=== PATIENT | female | born 1990 ===

== ENCOUNTER 2019-02-06 23:13 | Inpatient (IN) | payer OTHER ==
[2019-02-07] MEDS ORDERED: MINERAL OIL PO PRN (00:04)
[2019-02-07] MEDS ORDERED: SUBLIMAZE IV PRN (00:04)
[2019-02-07] MEDS ORDERED: BRETHINE IVP PRN (00:04)
[2019-02-07] MEDS ORDERED: XYLOCAINE 2% INFILTRATI ONE (00:04)
[2019-02-07] MEDS ORDERED: BRETHINE SUB-Q PRN (00:04)
[2019-02-07 00:52] LABS: Hematocrit 35.3 % (30.3-42.9); Hemoglobin 12.4 gm/dl (10.1-14.3); Mean Corpuscular HGB Conc 35 % (30-34); Mean Corpuscular Volume 88 fl (79-97); Platelet Count 265 K/mm3 (140-440); Red Blood Count 4.01 M/mm3 (3.65-5.03); Red Cell Distribution Width 13.2 % (13.2-15.2)
[2019-02-07] MEDS ORDERED: PITOCin/NS 30 UNIT/500ML 30 UNITS/500 ML BAG IV SCH (01:00)
[2019-02-07] MEDS ORDERED: LACTATED RINGERS 1,000 ML IV SCH (01:00)
--- NOTE | 2019-02-07 03:59 | History and Physical Report ---
History of Present Illness Date of examination: 02/07/19 Date of admission: 02/07/19 02:31 Chief complaint: Intense labor pains History of present illness: 28 yo Fe WING 02/15/2019, 38w 6d presents in active labor. Pt initiated early care with Dr. Lovell at [facility] . Records available and reviewed. course complicated by Chlamydia on 08/05/18. YOLIE done 01/27/2019 (results not documented; pt reports Negative). 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 denies: abnormal PAP smear, gonorrhea, hepatitis B, hepatitis C, herpes, HIV, syphilis, trichomonas Family/Genetic History: none Social history: no significant social history, single, lives with family, full code. denies: smoking, alcohol abuse, prescription drug abuse, IV drug use - Obstetrical History Expected Date of Delivery: 02/15/19 Actual Gestation: 38 Week(s) 6 Day(s) : 2 Para: 1 Hx # Term Pregnancies: 1 Number of Pregnancies: 0 Spontaneous Abortions: 0 Induced : 0 Number of Living Children: 1 #1 year: 2,014 Birthweight: 3.175 kg Method of Delivery: Vaginal Gestational age at delivery: 39 Complications: none Medications and Allergies Allergies Allergy/AdvReac Type Severity Reaction Status Date / Time No Known Allergies Allergy Verified 02/07/19 00:12 Active Meds: Active Medications Ephedrine Sulfate (Ephedrine Sulfate) 10 mg IV Q2M PRN PRN Reason: Hypotension Fentanyl (Sublimaze) 100 mcg IV Q2H PRN PRN Reason: Labor Pain Last Admin: 02/07/19 01:03 Dose: 100 mcg Documented by: Oxytocin/Sodium Chloride (Pitocin/Ns 20 Unit/1000ml Drip) 20 units in 1,000 mls @ 125 mls/hr IV DIRECT BLANCHE Oxytocin/Sodium Chloride (Pitocin/Ns 30 Unit/500ml) 30 units in 500 mls @ 1 mls/hr IV TITR BLANCHE; Protocol Lactated Ringer's (Lactated Ringers) 1,000 mls @ 125 mls/hr IV DIRECT BLANCHE Last Admin: 02/07/19 01:10 Dose: 125 mls/hr Documented by: Mineral Oil (Mineral Oil) 30 ml PO QHS PRN PRN Reason: Constipation Terbutaline Sulfate (Brethine) 0.25 mg SUB-Q ONCE PRN PRN Reason: Hyperstimulation/Hypertonicity Terbutaline Sulfate (Brethine) 0.25 mg IVP ONCE PRN PRN Reason: Hyperstimulation/Hypertonicity Review of Systems Eyes: normal appearance Cardiovascular: no chest pain, no shortness of breath Respiratory: no shortness of breath Breasts: normal Gastrointestinal: no nausea, no vomiting, no diarrhea Genitourinary: normal appearance, vaginal bleeding (normal show), leakage of fluid, contractions, no genital sores Integumentary: no rash, no sores, no lesions - Vital Signs Vital signs: Vital Signs Pulse BP Pulse Ox 107 H 118/75 96 02/06/19 23:26 02/06/19 23:26 02/06/19 23:26 Temp Pulse Resp BP Pulse Ox 89 18 110/71 97 02/07/19 03:37 02/06/19 23:28 02/07/19 02:21 02/07/19 03:37 - Physical Exam Breasts: Positive: normal Cardiovascular: Regular rate, Normal S1, Normal S2, No murmurs Lungs: Positive: Clear to auscultation, Normal air movement Abdomen: Positive: normal appearance, soft, normal bowel sounds. Negative: distention Genitourinary (Female): Positive: normal external genitalia, normal perenium Vulva: both: normal (normal bloody show) Vagina: Positive: normal moisture, discharge (bloody show) Uterus: Positive: enlarged (gravid) Anus/Rectum: Positive: normal perianal skin Extremities: Positive: normal Deep Tendon Reflex Grade: Normal +2 - Obstetrical FHR: category 1 Uterine Contraction Monitor Mode: External Cervical Dilatation: 8 (4 on admission per RN) Cervical Effacement Percentage: 75 station: -1 Uterine Contraction Frequency (min): 1-3 Uterine Contraction Duration: 90-120 Uterine Contraction Pattern: Regular Uterine Tone Measurement Phase: Resting Uterine Contraction Intensity: Strong/Firm Results Result Diagrams: 10/11/19 00:00 Abnormal lab results 02/07/19 Range/Units 00:00 WBC 20.9 H (4.5-11.0) K/mm3 MCHC 35 H (30-34) % All other labs normal. Assessment and Plan A: Term IUP at 38w6d Category 1 tracing Active labor GBS Negative P: Admit to L&D Routine labor orders MAy have IV pain med/epidural PRN Anticipate
[2019-02-07] MEDS: PITOCin/NS 20 UNIT/1000ML DRIP 20 UNITS/1,000 ML BAG IV SCH ×2 (04:28→06:53)
--- NOTE | 2019-02-07 04:54 | Procedure Note ---
OB Delivery Note - Delivery Date of Delivery: 02/07/19 (04:25) Surgeon: KEVIN VERGARA (KASSIE) Estimated blood loss: 100cc - Vaginal Delivery presentation: vertex Delivery position: OA Intrapartum events: foul smelling fluid, other(please specify) (elevated WBC 20.9) Delivery induction: none Delivery monitor: external FHT, external uterine Route of delivery: (04:25) Delivery placenta: spontaneous (04:29) Delivery cord: 3 umbilical vessels Episiotomy: none Delivery laceration: none Anesthesia: intravenous Delivery comments: viable female infant RENAN position over intact perineum at 04:25. Strong foul smelling fluid noted at delivery. Vigorous infant to mothers abdomen. Delayed cord clamping, cut by myself. Spontaneous clark delivery of intact placenta at 04:29. To pathology for evaluation. FF@U-2. bleeding small. no tears or lacerations noted. EBL 100CC. GBS was negative. 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 She responded at home, 02/06/19 at noon. 16+ hrs ago. Pt also reports Negative test of cure for previously positive chlamydia. Plan to treat with antibiotics for suspected Chorioamnionitis d/t foul smelling fluid and elevated WBC. Pt denies any allergies. - Infant A at 1 minute: 8 at 5 minutes: 9 Infant Gender: Female (7lbs 1oz, 3178 grams, 18")
[2019-02-07] MEDS ORDERED: AMPICILLIN/NS 2 GM/100 ML 2 GM/100 ML BAG IV ONE (05:13)
[2019-02-07] MEDS ORDERED: TUCKS PAD TP PRN (05:14)
[2019-02-07] MEDS ORDERED: ZOFRAN IV PRN (05:14)
[2019-02-07] MEDS ORDERED: LANSINOH TP PRN (05:14)
[2019-02-07] MEDS ORDERED: TYLENOL PO PRN (05:14)
[2019-02-07] MEDS ORDERED: DULCOLAX PR PRN (05:14)
[2019-02-07] MEDS ORDERED: BENADRYL PO PRN (05:14)
[2019-02-07] MEDS ORDERED: NORCO 5/325 PO PRN (05:14)
[2019-02-07] MEDS ORDERED: PHENERGAN PO PRN (05:14)
[2019-02-07] MEDS ORDERED: MILK OF MAGNESIA PO PRN (05:14)
[2019-02-07] MEDS ORDERED: SODIUM CHLORIDE FLUSH SYRINGE 10 ML IV PRN (06:00)
[2019-02-07] MEDS ORDERED: IBUPROFEN PO SCH (06:00)
[2019-02-07] MEDS: IBUPROFEN PO SCH ×3 (06:20→17:37)
[2019-02-07] MEDS: AMPICILLIN/NS 1 GM/50 ML 1 GM/50 ML BAG IV SCH ×4 (09:41→23:30)
[2019-02-07 10:57] LABS: Hematocrit 36.9 % (30.3-42.9); Hemoglobin 12.8 gm/dl (10.1-14.3); Mean Corpuscular HGB Conc 35 % (30-34); Mean Corpuscular Volume 88 fl (79-97); Platelet Count 239 K/mm3 (140-440); Red Blood Count 4.19 M/mm3 (3.65-5.03); Red Cell Distribution Width 13.5 % (13.2-15.2)
[2019-02-07] MEDS: GENTAMICIN/NS 80 MG/100 ML 100 ML IV SCH ×2 (17:37)
[2019-02-07] MEDS ORDERED: NACL 0.9% 1000 ML 1,000 ML IV SCH (18:00)
[2019-02-08] MEDS: IBUPROFEN PO SCH ×3 (00:35→18:21)
[2019-02-08] MEDS: GENTAMICIN/NS 80 MG/100 ML 100 ML IV SCH (02:06)
[2019-02-08] MEDS: AMPICILLIN/NS 1 GM/50 ML 1 GM/50 ML BAG IV SCH ×3 (03:55→12:31)
[2019-02-08] MEDS ORDERED: GENTAMICIN/NS 80 MG/100 ML 100 ML IV SCH (10:00)
--- NOTE | 2019-02-08 14:15 | Progress Note ---
Assessment and Plan A: day 1 S/P spontaneous vaginal delivery. Elevated WBC; possible chorioamnionitis during labor; patient receiving Ampicillin and Gentamicin. P: CBC with diff, UA, urine C&S, CMP. Continue IV antibiotics. IV and PO hydration. Subjective - Subjective Date of service: 02/08/19 Principal diagnosis: day 1 S/P Interval history: day 1 S/P . Patient is receiving Ampicillin/Gentamicin due to suspected chorioamnionitis during labor and elevated WBC. Patient states she is feeling well. She denies fever or chills. She denies abdominal or pelvic pain. No headache, chest pain, cough, shortness of breath, leg pain, nausea or vomiting, or heavy bleeding. Patient is voiding without difficulty, ambulating well, and tolerating a regular diet. Patient reports: appetite normal, voiding normally, pain well controlled, flatus, ambulating normally, no dizzy ambulation, no nauseated : doing well Objective - Vital Signs Latest vital signs: Vital Signs Temp Pulse Resp BP BP Pulse Ox 02/08/19 08:28 97.5 F L 68 16 99/58 98 02/08/19 06:38 18 02/08/19 01:35 18 02/08/19 00:35 18 02/08/19 00:00 98.6 F 66 19 118/81 02/07/19 20:00 98.8 F 77 18 112/79 02/07/19 17:04 97.9 F 92 H 16 91/49 97 Intake and Output 02/07/19 02/08/19 02/08/19 23:59 07:59 15:59 Intake Total 500 50 50 Balance 500 50 50 Intake: IV 200 50 50 AMPICILLIN/NS 1 GM/50 ML 50 1 gm In 50 ml @ 100 mls/ hr IV Q4H BLANCHE Rx#: [id number] AMPICILLIN/NS 1 GM/50 ML 100 50 1 gm In 50 ml @ 100 mls/ hr IV Q4HR BLANCHE Rx#: [id number] Gentamicin/Ns 80 mg/100 100 ml 100 ml @ 200 mls/hr IV Q8H BLANCHE Rx#:[id number] Intake, Free Water 300 Other: # Voids Void 1 - Exam Cardiovascular: Present: Regular rate, Normal S1, Normal S2, No murmurs Lungs: Present: Clear to auscultation Abdomen: Present: normal appearance, soft, normal bowel sounds. Absent: distention, tenderness, guarding, rigidity Uterus: Present: normal, firm, fundal height below umbilicus. Absent: bogginess, tenderness Extremities: Present: normal. Absent: tenderness, edema
[2019-02-08] MEDS ORDERED: LACTATED RINGERS 250 ML IV ONE (14:16)
[2019-02-08 15:05] LABS: Basophils % (Auto) 0.2 % (0.0-1.8); Eosinophils # (Auto) 0.1 K/mm3 (0.0-0.4); Eosinophils % (Auto) 0.6 % (0.0-4.3); Hematocrit 33.1 % (30.3-42.9); Hemoglobin 11.6 gm/dl (10.1-14.3); Lymphocytes # (Auto) 2.4 K/mm3 (1.2-5.4); Lymphocytes % (Auto) 14.9 % (13.4-35.0); Mean Corpuscular HGB Conc 35 % (30-34); Mean Corpuscular Volume 89 fl (79-97); Monocytes # (Auto) 0.7 K/mm3 (0.0-0.8); Monocytes % (Auto) 4.5 % (0.0-7.3); Platelet Count 271 K/mm3 (140-440); Red Blood Count 3.74 M/mm3 (3.65-5.03); Red Cell Distribution Width 13.8 % (13.2-15.2)
[2019-02-08 15:27] LABS: Alanine Aminotransferase 8 units/L (7-56); Albumin 2.7 g/dL (3.9-5); BUN/Creatinine Ratio 20; Blood Urea Nitrogen 10 mg/dL (7-17); Calcium 7.9 mg/dL (8.4-10.2); Hemolysis Index 11
[2019-02-08 16:08] LABS: Bilirubin,Urine NEG (Negative); Blood,Urine LG (Negative); Color,Urine Yellow (Yellow); Mucus,Urine FEW /HPF; Protein,Urine <15 mg/dL mg/dL (Negative); Urobilinogen,Urine < 2.0 mg/dL (<2.0)
[2019-02-08 16:22] LABS: RBC,Urine > 182.0 /HPF (0.0-6.0)
--- NOTE | 2019-02-08 17:42 | Event Note ---
Date: 02/08/19 UA positive for WBCs (41 per hpf). Urine C&S pending. Rocephin 1 gram IV every 24 hrs. ordered.
[2019-02-08] MEDS: ROCEPHIN/NS 1 GM/50 ML 1 GM/50 ML BAG IV SCH (23:00)
[2019-02-09] MEDS: IBUPROFEN PO SCH ×4 (00:30→23:00)
--- NOTE | 2019-02-09 11:15 | Progress Note ---
Assessment and Plan A: day 2 S/P spontaneous vaginal delivery. UTI with elevated WBC. P: Patient to have another dose of IV Rocephin this evening. Repeat WBC in AM. Anticipate discharge tomorrow if WBC continues to decrease and patient continues to do well. Increase oral water intake. Subjective - Subjective Date of service: 02/09/19 Principal diagnosis: day 2 S/P Interval history: day 2 S/P . Patient has a UTI and is receiving IV Rocephin. Patient denies fever, chills, malaise, or flank pain. Has lower back pain and mild pelvic pain. Reports small amount of lochia. Voiding a normal amount; passing gas, ambulating well. Tolerating a regular diet. Patient denies headache, dizziness, cough, shortness of breath, chest pain, leg pain, or heavy bleeding. Patient reports: appetite normal, voiding normally, pain well controlled, flatus, ambulating normally, no dizzy ambulation, no nauseated [place]: doing well Objective - Vital Signs Latest vital signs: Vital Signs Temp Pulse Resp BP BP Pulse Ox 02/09/19 08:07 98.1 F 67 18 111/63 02/09/19 06:06 18 02/09/19 02:20 98.0 F 63 20 115/66 98 02/09/19 01:30 18 02/09/19 00:30 18 02/08/19 19:56 97.7 F 71 18 99/65 97 02/08/19 19:16 18 02/08/19 17:32 97.9 F 74 18 111/58 98 Intake and Output 02/08/19 02/09/19 02/09/19 23:59 07:59 15:59 Intake Total 600 360 480 Balance 600 360 480 Intake: Oral 480 Intake, Free Water 600 360 Other: Total, Intake Amount 480 # Voids Void 3 2 - Exam Cardiovascular: Present: Regular rate, Normal S1, Normal S2, No murmurs Lungs: Present: Clear to auscultation Abdomen: Present: normal appearance, soft. Absent: distention, tenderness, guarding, rigidity Uterus: Present: normal, firm, fundal height below umbilicus. Absent: bogginess, tenderness Extremities: Present: normal, edema (mild pedal edema bilaterally). Absent: tenderness - Labs Labs: Abnormal lab results 02/08/19 02/08/19 02/08/19 Range/Units 14:43 14:43 15:45 WBC 16.4 H (4.5-11.0) K/mm3 MCHC 35 H (30-34) % Seg Neutrophils % 79.8 H (40.0-70.0) % Seg Neutrophils # 13.1 H (1.8-7.7) K/mm3 Chloride 107.5 H (98-107) mmol/L Carbon Dioxide 17 L (22-30) mmol/L Creatinine 0.5 L (0.7-1.2) mg/dL Glucose 130 H (65-100) mg/dL Calcium 7.9 L (8.4-10.2) mg/dL Total Protein 5.9 L (6.3-8.2) g/dL Albumin 2.7 L (3.9-5) g/dL Urine WBC (Auto) 41.0 H (0.0-6.0) /HPF
[2019-02-09] MEDS: ROCEPHIN/NS 1 GM/50 ML 1 GM/50 ML BAG IV SCH (22:56)
[2019-02-10] MEDS: IBUPROFEN PO SCH ×2 (01:56→05:51)
--- NOTE | 2019-02-10 10:14 | Progress Note ---
Assessment and Plan - Patient Problems (1) Status post normal vaginal delivery Current Visit: Yes Status: Acute Plan to address problem: PPD 3 - stable Continue routine orders Discharge to home today Follow up at [facility] as needed or in 6 weeks for exam (2) Leukocytosis Current Visit: Yes Status: Acute Plan to address problem: Currently asymptomatic - temp 98.5, HR 72 s/p Rocehin 1gm IV q24hr Urine culture -no growth after 48 hours WBC count decreasing - initially 20.9, then 26.5, now 16.4. Repeat CBC this AM pending. Subjective - Subjective Date of service: 02/10/19 Principal diagnosis: PPD #3; s/p , Leukocytosis Interval history: see H&P, OB Delivery Procedure Note and PP/PHYSICIAN EXTENDER Progress Notes Patient reports: appetite normal, voiding normally, pain well controlled, a mbulating normally, no dizzy ambulation : doing well, nursing well Objective - Vital Signs Latest vital signs: Vital Signs Temp Pulse Resp BP BP Pulse Ox 02/10/19 07:29 98.5 F 72 18 109/62 02/09/19 23:23 98.2 F 74 20 120/62 96 02/09/19 17:39 98.5 F 70 18 111/68 Intake and Output 02/09/19 02/10/19 02/10/19 23:59 07:59 15:59 Intake Total 920 480 Balance 920 480 Intake: Oral 920 480 Other: Total, Intake Amount 240 480 # Voids Void 1 1 - Exam Cardiovascular: Present: Regular rate Lungs: Present: Clear to auscultation Abdomen: Present: normal appearance, soft Vulva: both: normal Uterus: Present: normal, firm Extremities: Present: normal Comments: small lochia
--- NOTE | 2019-02-10 10:19 | Discharge Summary ---
Providers - Providers Date of Admission: 02/07/19 02:31 Date of discharge: 02/10/19 Attending physician: JEFRY ARITS MD Primary care physician: JEFRY ARTIS MD Hospitalization Reason for admission: active labor, IUP at term Delivery: Episiotomy: none Laceration: none Other procedures: none complications: other (Unspecified Leukocytosis - resolved) Discharge diagnosis: IUP at term delivered [place] baby: female Hospital course: Complicated by asymptomatic leukocytosis - resolved s/p Rocephin 1gm IV. Repeat WBC 10.3 Condition at discharge: Stable Disposition: DC-01 TO HOME OR SELFCARE - Discharge Diagnoses (1) Status post normal vaginal delivery Status: Acute (2) Leukocytosis Status: Resolved Plan - Provider Discharge Summary Activity: routine, no sex for 6 weeks, no heavy lifting 4 weeks, no strenuous exercise Diet: routine Instructions: routine Additional instructions: [] Smoking cessation referral if applicable(refer to patient education folder for contact #) [] Refer to [facility] Booklet Call your doctor immediately for: * Fever > 100.5 * Heavy vaginal bleeding ( >1 pad per hour) * Severe persistent headache * Shortness of breath * Reddened, hot, painful area to leg or breast * Drainage or odor from incision. * Keep incision clean and dry at all times and follow doctor's instructions regarding bathing/showering - Follow up plan Follow up: JEFRY ARTIS MD [Primary Care Provider] - 6 Weeks (Follow up at [facility] as needed or in 6 weeks for exam) Forms: [facility] Discharge Summary
[2019-02-10 10:20] LABS: Basophils # (Auto) 0.1 K/mm3 (0.0-0.1); Basophils % (Auto) 0.5 % (0.0-1.8); Eosinophils # (Auto) 0.2 K/mm3 (0.0-0.4); Eosinophils % (Auto) 1.6 % (0.0-4.3); Hematocrit 36.5 % (30.3-42.9); Hemoglobin 12.8 gm/dl (10.1-14.3); Lymphocytes # (Auto) 1.9 K/mm3 (1.2-5.4); Lymphocytes % (Auto) 18.1 % (13.4-35.0); Mean Corpuscular HGB Conc 35 % (30-34); Mean Corpuscular Volume 87 fl (79-97); Monocytes # (Auto) 0.6 K/mm3 (0.0-0.8); Monocytes % (Auto) 6.3 % (0.0-7.3); Platelet Count 283 K/mm3 (140-440); Red Blood Count 4.19 M/mm3 (3.65-5.03); Red Cell Distribution Width 13.8 % (13.2-15.2)
[2019-02-10 12:47] VITALS: BP 112/74
== END 2019-02-10 13:00 | disposition home or self-care (01) | DRG 807 ==
LOC: TRG 23:13 → LD 02-07 00:33 → TRG 02-07 02:31 → LD 02-07 02:31 → OB 02-07 07:11
PROVIDERS: ADMIT Obstetrics & Gynecology; ATTEND Obstetrics & Gynecology
PROC: 10E0XZZ Delivery of Products of Conception, External Approach (ICD-10-PCS; principal; 2019-02-07)
DX: O86.20 Urinary tract infection following delivery, unspecified (principal); Z37.0 Single live birth; Z3A.38 38 weeks gestation of pregnancy
CPT/HCPCS: 36415; 80053; 81001; 85014; 85018; 85025; 85027; 86592; 86850; 86900; 86901; 87086; 88305; 88307; 96374; G0378; J0290; J0696; J1580; J2590; J3010; J7030; J7120